=== PATIENT | male | born 1990 | race Asian ===

== ENCOUNTER 2020-12-25 19:42 | Emergency (ER) | payer OTHER ==
[~2020-12-25] VITALS: Ht 167.6 cm; Wt 86.4 kg
[2020-12-25 21:55] VITALS: BP 135/83
== END 2020-12-25 21:55 | disposition home or self-care (01) ==
LOC: ED 19:42
DX: S59.902A Unspecified injury of left elbow, initial encounter (principal); X50.1XXA Overexertion from prolonged static or awkward postures, initial encounter; Y93.75 Activity, martial arts